=== PATIENT | female | born 1995 ===

== ENCOUNTER 2018-12-24 17:38 | Inpatient (IN) | payer OTHER ==
[~2018-12-24] VITALS: Ht 162.6 cm; Wt 76.7 kg
[2018-12-24] MEDS ORDERED: PRENATAL TABLE1 EAC1 PO (19:28)
== END 2018-12-26 14:44 | disposition home or self-care (01) | DRG 832 ==
LOC: LDR 17:38
PROVIDERS: ADMIT Obstetrics & Gynecology Obstetrics
PROC: 4A1HXCZ Monitoring of Products of Conception, Cardiac Rate, External Approach (ICD-10-PCS; principal; 2018-12-24)
PROC: BY4FZZZ Ultrasonography of Third Trimester, Single Fetus (ICD-10-PCS; 2018-12-24)
DX: O14.03 Mild to moderate pre-eclampsia, third trimester (principal); O47.03 False labor before 37 completed weeks of gestation, third trimester; Z3A.28 28 weeks gestation of pregnancy

== ENCOUNTER 2019-01-20 14:01 | Outpatient (CLI) | payer OTHER ==
[~2019-01-20 14:01] MED LIST: PRENATAL TABLE1 EAC1 PO
== END 2019-01-20 15:15 | disposition home or self-care (01) ==
LOC: PRENATAL 14:01
DX: O13.3 Gestational [pregnancy-induced] hypertension without significant proteinuria, third trimester (principal); O09.813 Supervision of pregnancy resulting from assisted reproductive technology, third trimester; O36.23X0 Maternal care for hydrops fetalis, third trimester, not applicable or unspecified

== ENCOUNTER 2019-02-04 14:51 | Outpatient (CLI) | payer OTHER | END 2019-02-04 16:00 | disposition home or self-care (01) | LOC: PRENATAL 14:51 | DX: O14.93 Unspecified pre-eclampsia, third trimester (principal); O09.813 Supervision of pregnancy resulting from assisted reproductive technology, third trimester; O02.0 Blighted ovum and nonhydatidiform mole ==

== ENCOUNTER → 2019-02-17 | Outpatient (CLI) | payer OTHER ==
[~2019-02-17] MED LIST changes: +ASA81 MG PO; +FOLIC ACID20 MG PO
== END | disposition home or self-care (01) ==
LOC: PRENATAL 13:00
DX: O26.843 Uterine size-date discrepancy, third trimester (principal); O14.93 Unspecified pre-eclampsia, third trimester